=== PATIENT | female | born 1990 | race Caucasian/White ===

== ENCOUNTER 2017-09-27 21:50 | Emergency (ER) | payer OTHER ==
[~2017-09-27] VITALS: Ht 157.5 cm; Wt 53.1 kg
[2017-09-27] MEDS ORDERED: PRENATAL + DHA1 EAC1 (22:10)
[2017-09-28] MEDS ORDERED: ALBUTEROL2.5 MG/3 M IH (03:24)
[2017-09-28] MEDS ORDERED: SINGULAIR10 MG PO (03:36)
== END 2017-09-28 03:18 | disposition home or self-care (01) ==
LOC: ER 21:50
DX: J45.998 Other asthma (principal); B34.9 Viral infection, unspecified

== ENCOUNTER 2017-11-28 21:18 | Inpatient (IN) | payer OTHER ==
[~2017-11-28] VITALS: Ht 157.5 cm; Wt 56.7 kg
[~2017-11-28 21:18] MED LIST: ALBUTEROL2.5 MG/3 M IH; PRENATAL + DHA1 EAC1; SINGULAIR10 MG PO
[2017-11-28] MEDS ORDERED: GUMMI BEAR MUL1 EACH PO (21:35)
[2017-12-07] MEDS ORDERED: HYDRALAZINE HCL25 MG PO (13:30)
== END 2017-12-07 14:02 | disposition home or self-care (01) | DRG 766 ==
LOC: OB/GYN 21:18 → LDR 21:18 → O/R 12-02 11:30 → LDR 12-02 15:35 → OB/GYN 12-04 13:36
PROVIDERS: Obstetrics & Gynecology
PROC: BY4CZZZ Ultrasonography of Second Trimester, Single Fetus (ICD-10-PCS; 2017-11-28)
PROC: 4A033R1 Measurement of Arterial Saturation, Peripheral, Percutaneous Approach (ICD-10-PCS; 2017-12-02)
PROC: 4A1HXCZ Monitoring of Products of Conception, Cardiac Rate, External Approach (ICD-10-PCS; 2017-12-02)
PROC: 10D00Z1 Extraction of Products of Conception, Low, Open Approach (ICD-10-PCS; principal; 2017-12-02 08:00)
DX: O14.14 Severe pre-eclampsia complicating childbirth (principal); Z3A.26 26 weeks gestation of pregnancy; Z37.0 Single live birth